=== PATIENT | female | born 1990 | race Two or more races ===

== ENCOUNTER → 2020-07-01 | Outpatient (CLI) | payer OTHER | END | disposition home or self-care (01) | LOC: PRENATAL 11:00 | PROVIDERS: ATTEND Obstetrics & Gynecology Maternal & Fetal Medicine | DX: O35.0XX1 Maternal care for (suspected) central nervous system malformation in fetus, fetus 1 (principal); O35.3XX1 Maternal care for (suspected) damage to fetus from viral disease in mother, fetus 1; O98.512 Other viral diseases complicating pregnancy, second trimester; Z36.89 Encounter for other specified antenatal screening; Z3A.20 20 weeks gestation of pregnancy ==

== ENCOUNTER 2020-11-12 12:30 | Inpatient (IN) | payer OTHER ==
[~2020-11-12] VITALS: Ht 160 cm; Wt 3.2 kg
[2020-11-22] MEDS ORDERED: PRENATABS RX T1 EACH PO (10:46)
== END 2020-11-25 11:57 | disposition home or self-care (01) | DRG 788 ==
LOC: LDR 11-22 06:33 → O/R 11-22 16:19 → OB/GYN 11-22 17:45 → LDR 11-23 12:30 → OB/GYN 11-25 11:57
PROVIDERS: ADMIT Specialist; ATTEND Specialist
PROC: 3E033VJ Introduction of Other Hormone into Peripheral Vein, Percutaneous Approach (ICD-10-PCS; 2020-11-22)
PROC: 4A1HXFZ Monitoring of Products of Conception, Cardiac Rhythm, External Approach (ICD-10-PCS; 2020-11-22)
PROC: 10D00Z1 Extraction of Products of Conception, Low, Open Approach (ICD-10-PCS; principal; 2020-11-22 15:00)
DX: O61.8 Other failed induction of labor (principal); Z3A.39 39 weeks gestation of pregnancy; Z37.0 Single live birth; Z37.9 Outcome of delivery, unspecified; Z20.822 Contact with and (suspected) exposure to COVID-19